=== PATIENT | female | born 1985 | race Two or more races ===

== ENCOUNTER 2019-06-24 14:08 | Emergency (ER) | payer MEDICAID | END 2019-06-24 15:22 | disposition left against medical advice (07) | LOC: ER 14:08 | DX: Z53.21 Procedure and treatment not carried out due to patient leaving prior to being seen by health care provider (principal) ==

== ENCOUNTER 2021-10-03 22:12 | Emergency (ER) | payer MEDICAID ==
[~2021-10-03] VITALS: Ht 152.4 cm; Wt 68.0 kg
[2021-10-03 23:00] VITALS: BP 109/88
[2021-10-03] MEDS ORDERED: IBUPROFEN 600MG TABLET PO STA (23:01)
[2021-10-04] MEDS ORDERED: NAPR-681 PO (00:21)
== END 2021-10-04 00:59 | disposition home or self-care (01) ==
LOC: ER 22:12 → EDUNIT# 22:12 → ER 10-04 00:59
DX: M79.641 Pain in right hand (principal)
CPT/HCPCS: 73130; 81025; 99283